=== PATIENT | male | born 1980 ===

== ENCOUNTER → 2021-05-25 14:45 | Outpatient (BNVA) | payer OTHER, SELFPAY | PROVIDERS: Family Provider Nurse Practitioner Family; PCP Nurse Practitioner Family; Referring Provider Nurse Practitioner Family; Visit Provider Specialist | DX: M25.539 Pain in unspecified wrist (principal); R20.0 Anesthesia of skin; R20.2 Paresthesia of skin | CPT/HCPCS: 95910 ==

== ENCOUNTER 2022-01-07 10:37 | Outpatient (CLI) | payer BC, SELFPAY ==
--- NOTE | 2022-01-07 10:54 | XR_ITS ---
WS: [id number] Left elbow, 3 views, 01/07/2022 Clinical Data: LATERAL EPICONDYLITIS Comparison: None. Findings: No fractures or dislocations are seen. The radial head is normal. The soft tissues are unremarkable. There is a small incidental fragment which appears anterior to the radial head or coronoid process on the lateral view only. XR/XR elbow LT min 3V* [id number] Impression: Negative left elbow.
--- NOTE | 2022-01-07 10:54 | XR_ITS ---
WS: [id number] Left shoulder, 2 views, 01/07/2022 Clinical Data: L SHOULDER PAIN Comparison: None. Findings: No fractures or dislocations are seen. The AC joint is normal. The adjacent left clavicle, left scapu la and ribs are normal. The soft tissues are unremarkable. XR/XR shoulder LT min 2V* [id number] Impression: Negative left shoulder.
== END 2022-01-07 10:38 | disposition home or self-care (01) ==
PROVIDERS: PCP Nurse Practitioner Family; Visit Provider Nurse Practitioner Family
DX: M25.512 Pain in left shoulder (principal); M77.10 Lateral epicondylitis, unspecified elbow
CPT/HCPCS: 73030; 73080

== ENCOUNTER 2024-03-15 06:50 | Outpatient (CLI) | payer OTHER, SELFPAY ==
--- NOTE | 2024-03-15 07:15 | USCV_ITS ---
Mark Perry Age: 44 Gender: M : 1980 Exam Date: 03/15/2024 07:07 Ordering Phys: Raquel Borden Technologist: REBEL Exam Location: [facility] [place] Indication: MURMUR BP: 125 / 67 HR: 73 Rhythm: Sinus Technical Quality: Suboptimal MEASUREMENTS (Male / Female) Normal Values 2D ECHO LV Diastolic Diameter PLAX 4.3 cm 4.2 - 5.9 / 3.9 - 5.3 cm IVS Diastolic Thickness 1.2 cm 0.6 - 1.0 / 0.6 - 0.9 cm IVS Systolic Thickness 1.5 cm LVPW Diastolic Thickness 1.6 cm 0.6 - 1.0 / 0.6 - 0.9 cm LVPW Systolic Thickness 2.5 cm LVOT Diameter 2.0 cm LV Ejection Fraction 2D Teich 58.4 % LV Ejection Fraction MOD 2C 50.6 % LV Ejection Fraction 2C AL 51.2 % LA Diameter 3.0 cm RA Systolic Volume 4C AL 10.1 ml RA Systolic Volume 4C MOD 9.7 ml LA Sys Volume AL 28.7 cm cubed LA Sys Volume Index AL 14.1 cm cubed/m squared Aorta at Sinotubular Diameter 1.7 cm IVC Diameter 0.9 cm DOPPLER AV Peak Velocity 191.0 cm/s LVOT Peak Velocity 91.0 cm/s AV Area Cont Eq vti 1.5 cm squared AV Area Cont Eq pk 1.4 cm squared MV Peak Velocity 104.0 cm/s MV Area PHT 3.0 cm squared Mitral E to A Ratio 1.2 TR Peak Velocity 130.0 cm/s TR Peak Gradient 6.8 mmHg TR Mean Velocity 112.0 cm/s TR Mean Gradient 5.2 mmHg TR Velocity Time Integral 38.4 cm TV Peak E Velocity 51.0 cm/s Right Atrial Pressure 3.0 mmHg Pulmonary Artery Systolic Pressu 9.8 mmHg FINDINGS Left Ventricle Normal left ventricular size, systolic function and wall thickness, with no regional wall motion abnormalities. Grade I/IV diastolic dysfunction (abnormal relaxation filling pattern), normal to mildly elevated filling pressures. Left ventricular ejection fraction is estimated at 65 %. Right Ventricle Normal right ventricular size and systolic function. Normal right ventricular systolic pressure. Right Atrium The right atrium is normal in size. Left Atrium The left atrium is normal in size. Mitral Valve Structurally normal mitral valve. No mitral valve regurgitation. Aortic Valve Structurally normal trileaflet aortic valve. Mild aortic valve calcification. Mild aortic valve stenosis, mean gradient 9.2 mmHg, ERICA 1.5 cm squared. No aortic valve regurgitation. Tricuspid Valve Structurally normal tricuspid valve without significant stenosis or regurgitation. Pulmonary artery systolic pressure is normal. Pulmonic Valve Pulmonic valve not well visualized. Pericardium Normal pericardium without effusion. Aorta Normal ascending aorta dimension. IVC The inferior vena cava appears normal. CONCLUSIONS Normal left ventricular size, systolic function and wall thickness, with no regional wall motion abnormalities. Grade I/IV diastolic dysfunction (abnormal relaxation filling pattern), normal to mildly elevated filling pressures. Left ventricular ejection fraction is estimated at 65 %. Structurally normal trileaflet aortic valve. Mild aortic valve calcification. Mild aortic valve stenosis, mean gradient 9.2 mmHg, ERICA 1.5 cm squared. No aortic valve regurgitation. There are no prior echocardiogram studies to compare. Dr. Deven Mcneal MD (Electronically Signed) Final Date: 15 Mar 2024 13:08 S
== END 2024-03-15 06:51 | disposition home or self-care (01) ==
LOC: RAD 06:50
PROVIDERS: PCP Nurse Practitioner Family; Visit Provider Nurse Practitioner Family
DX: R01.1 Cardiac murmur, unspecified (principal); I35.0 Nonrheumatic aortic (valve) stenosis
CPT/HCPCS: 93306